=== PATIENT | male | born 1990 | race Caucasian/White ===

== ENCOUNTER → 2017-07-30 | Outpatient (REF) | payer OTHER ==
[2017-07-30 14:33] LABS: ERYTHROCYTE SEDIMENTATION RATE 1 mm/hr (0-15)
[2017-07-30 14:37] LABS: RHEUMATOID FACTOR QUANT < 10.0 IU/ML (<15.0)
[2017-07-31 08:17] LABS: VITAMIN B12 LEVEL 741 PG/ML (247-911)
[2017-07-31 08:17] LABS: FOLATE 13.1 NG/ML (>5.4)
[2017-08-03 14:12] LABS: VITAMIN E(ALPHA TOCOPHEROL) 10.4 mg/L (5.9-19.4); VITAMIN E(GAMMA TOCOPHEROL) 1.9 mg/L (0.7-4.9)
[2017-08-04 00:08] LABS: ANTINUCLEAR ANTIBODIES DIRECT Negative (Negative); CERULOPLASMIN 17.3 mg/dL (16.0-31.0); COPPER PLASMA 79 ug/dL (72-166); LEAD BLOOD ADULT <1 ug/dL (0-19); MERCURY LEVEL None Detected ug/L (0.0-14.9); VITAMIN B1 LEVEL WHOLE BLOOD 189.4 nmol/L (66.5-200.0); VITAMIN B6,PYRIDOXAL PHOSPHATE 11.6 ug/L (5.3-46.7)
== END ==
LOC: M LABNEURO 10:34
DX: R26.89 Other abnormalities of gait and mobility (principal)